=== PATIENT | female | born 1985 | race Caucasian/White ===

== ENCOUNTER 2018-09-20 15:44 | Emergency (ER) | payer OTHER ==
[~2018-09-20] VITALS: Ht 152.4 cm; Wt 66.7 kg
[~2018-09-20 15:44] MED LIST: PREN1TAB62 PO
[2018-09-20 15:46] VITALS: BP 110/54
--- NOTE | 2018-09-20 15:55 | NUR ---
Pt ambulates with steady gait and balance from triage to ED room. NADN. No obvious defecits observed.
--- NOTE | 2018-09-20 16:09 | NUR ---
FIRST CONTACT WITH PT: EMIGDIO. Pt's son at bedside. [facility] certified registered dental assistant services occuring at bedside. Pt c/o three days of neck pain that has gotten worse over the past three days. I have pain that starts in my neck and goes down my arms (bilaterally) and my hands (bilaterally). My arms are tingling and my hands feel like pins and needles. When I hold my baby my arm gets numb. It was coming and going but now it is constant. Yesterday I took anti-inflammatory medications and around 2 pm this afternoon I took medicaiton that helped it stopped. For a while now I have had twitching occasionally on my nostril (left side). I took ibuprofen, it did help relieve some what the pain, but the pain is still there, the numbness in my hands is still there and I still have that pain in my neck as well. The only injury I had was months ago I hit my head on a door nob." EMIGDIO. Bedrail up for safety measures. Call light within reach. Pt connected to NIBP and continous pulse ox.
--- NOTE | 2018-09-20 17:02 | NUR ---
Patient given discharge instructions and they have confirmed that they understand the instructions. Patient ambulatory with steady gait. Pt left with d/c paperwork and all personal belongings.
== END 2018-09-20 17:04 | disposition home or self-care (01) ==
LOC: ED 16:50
DX: M54.2 Cervicalgia (principal); G44.221 Chronic tension-type headache, intractable; M25.511 Pain in right shoulder; M25.512 Pain in left shoulder
CPT/HCPCS: 99281

== ENCOUNTER 2018-11-03 15:17 | Emergency (ER) | payer SELFPAY ==
[~2018-11-03] VITALS: Ht 152.4 cm; Wt 63.2 kg
[2018-11-03 15:24] VITALS: BP 103/55
[2018-11-03 15:54] LABS: BASOPHILS # (AUTO) 0.09 x10^3/uL (0-0.1); BASOPHILS % (AUTO) 1 % (0-1); EOSINOPHILS % (AUTO) 2 % (1-7); LYMPHOCYTES # (AUTO) 1.79 x10^3/uL (1-3.4); LYMPHOCYTES % (AUTO) 13 % (22-44); MD NO; MEAN CORPUSCULAR HGB CONC 33.5 g/dL (32.4-35.8); MEAN CORPUSCULAR VOLUME 86.7 fL (80-100); MEAN PLATELET VOLUME 8.8 fL (7.4-10.4); MONOCYTES # (AUTO) 0.67 x10^3/uL (0.2-0.8); MONOCYTES % (AUTO) 5 % (2-9); NEUTROPHILS # (AUTO) 11.18 x10^3/uL (1.8-6.8); NEUTROPHILS % (AUTO) 80 % (42-75); PLATELET COUNT 253 x10^3/uL (130-400); RED BLOOD COUNT 4.94 x10^6/uL (3.82-5.3); RED CELL DISTRIBUTION WIDTH 13.8 % (9.6-15.2)
--- NOTE | 2018-11-03 15:54 | NUR ---
PT HERE FOR BLOOD IN URINE AND PAINFUL URINATION. PT DENIES ANY TRUAMA. PT HAS POSITIVE UTI SYMOPTOMS. PT DOES NOT KNOW IF SHE IS PREGANANT.
[2018-11-03 16:04] LABS: ALANINE AMINOTRANSFERASE 38 U/L (12-78); ANION GAP 9 mmol/L (5-15); CALCIUM 8.8 mg/dL (8.5-10.1); CHLORIDE 108 mmol/L (98-107); CREATININE 0.67 mg/dL (0.55-1.02)
[2018-11-03 16:08] LABS: ALKALINE PHOSPHATASE 85 U/L (45-117); BILIRUBIN,TOTAL 0.6 mg/dL (0.2-1.0); TOTAL PROTEIN 7.4 g/dL (6.4-8.2)
[2018-11-03] MEDS ORDERED: KETOROLAC 30 MG/1 ML ONE (16:30)
[2018-11-03] MEDS ORDERED: KETOROLAC 30 MG/1 ML IM ONE (16:30)
--- NOTE | 2018-11-03 16:35 | NUR ---
PT MEDICATED FOR PAIN.
[2018-11-03 17:14] LABS: CULTURE INDICATED? YES; MICROSCOPIC INDICATED
--- NOTE | 2018-11-03 17:34 | NUR ---
Patient/Caregiver given discharge instructions and they have confirmed that they understand the instructions. Patient ambulatory with steady gait.
== END 2018-11-03 17:36 | disposition home or self-care (01) ==
LOC: ED 17:30
DX: N30.01 Acute cystitis with hematuria (principal); Z90.49 Acquired absence of other specified parts of digestive tract
CPT/HCPCS: 36415; 76770; 80053; 81001; 84703; 85025; 87077; 87086; 96372; 99284; J1885; 87186

== ENCOUNTER 2018-12-18 16:19 | Emergency (ER) | payer SELFPAY ==
[~2018-12-18] VITALS: Ht 152.4 cm; Wt 62.6 kg
[2018-12-18 18:55] VITALS: BP 94/57
== END 2018-12-18 20:01 | disposition home or self-care (01) ==
LOC: ED 19:45
DX: N30.90 Cystitis, unspecified without hematuria (principal); F17.200 Nicotine dependence, unspecified, uncomplicated; Z90.49 Acquired absence of other specified parts of digestive tract
CPT/HCPCS: 81001; 81025; 87077; 87086; 87186; 96372; 99283; J0696

== ENCOUNTER 2020-12-30 22:05 | Emergency (ER) | payer BC ==
[~2020-12-30] VITALS: Ht 152.4 cm; Wt 66.0 kg
[2020-12-30 22:10] VITALS: BP 106/52
--- NOTE | 2020-12-30 23:22 | NUR ---
PT AMBULATED TO ROOM. NO ACUTE DISTRESS. PT SAYS SHE HAS PAIN ON URINATION AND URINE COLLECTED.
[2020-12-30 23:39] LABS: HCG UR SG 1.008 (1.003-1.030)
[2020-12-30 23:41] LABS: MICROSCOPIC INDICATED
[2020-12-30] MEDS ORDERED: CEFDINIR 300 MG CAPSULE ONE (23:53)
[2020-12-31] MEDS ORDERED: CEFDINIR 300 MG CAPSULE PO ONE
--- NOTE | 2020-12-31 00:01 | NUR ---
MED GIVEN TO PT, PO. AND F/U AND D/C INSTRUCTIONS WITH PRESCRIPTIONS GIVEN TO PT AND SHE V/U. PT AMBULATED TO DISCHARGE.
== END 2020-12-31 00:02 | disposition home or self-care (01) ==
LOC: ED 23:00
DX: N30.01 Acute cystitis with hematuria (principal); F17.200 Nicotine dependence, unspecified, uncomplicated; Z90.49 Acquired absence of other specified parts of digestive tract
CPT/HCPCS: 81001; 81025; 87077; 87086; 87186; 99283